=== PATIENT | male | born 1995 | race Caucasian/White ===

== ENCOUNTER 2019-01-04 21:39 | Emergency (ER) | payer SELFPAY ==
[~2019-01-04] VITALS: Ht 195.6 cm; Wt 111.1 kg
[~2019-01-04 21:39] MED LIST: NORCO 5-325 TA1 EACH PO
== END 2019-01-05 00:10 | disposition home or self-care (01) ==
LOC: ED 21:39
DX: S20.212A Contusion of left front wall of thorax, initial encounter (principal); S00.11XA Contusion of right eyelid and periocular area, initial encounter; F32.9 Major depressive disorder, single episode, unspecified; F17.200 Nicotine dependence, unspecified, uncomplicated; V59.49XA Driver of pick-up truck or van injured in collision with other motor vehicles in traffic accident, initial encounter; W22.10XA Striking against or struck by unspecified automobile airbag, initial encounter
CPT/HCPCS: 70450; 70486; 71260; 72125; 74177; 80053; 81001; 82150; 82550; 83690; 85025; 86850; 86900; 86901; 99284-25; G0480; Q9967

== ENCOUNTER 2020-01-09 08:48 | Emergency (ER) | payer OTHER ==
[~2020-01-09] VITALS: Ht 195.6 cm; Wt 122.5 kg
[2020-01-09] MEDS ORDERED: LITHIUM CARBON300 M2 PO (08:59)
[2020-01-09] MEDS ORDERED: LITHIUM CARBON300 MG PO (09:00)
[2020-01-09] MEDS ORDERED: HYDROXYZINE PAM50 MG PO (09:00)
[2020-01-09] MEDS ORDERED: VISTARIL25 MG PO (09:01)
== END 2020-01-09 10:28 | disposition home or self-care (01) ==
LOC: ED 08:48
DX: S00.33XA Contusion of nose, initial encounter (principal); R04.0 Epistaxis; Y04.8XXA Assault by other bodily force, initial encounter; F32.9 Major depressive disorder, single episode, unspecified; Z87.891 Personal history of nicotine dependence; Z79.899 Other long term (current) drug therapy
CPT/HCPCS: 70160; 99284-25